=== PATIENT | male | born 1970 | race Caucasian/White ===

== ENCOUNTER 2021-02-27 12:53 | Emergency (ER) | payer SELFPAY ==
--- NOTE | ~2021-02-27 | CT_ITS ---
EXAMINATION: CT abdomen pelvis w con DATE: 02/27/2021 13:36 INDICATION: Abdominal pain, rectal bleeding TECHNIQUE: Computed tomography (CT) of the abdomen and pelvis was performed with 100 cc Omnipaque 350 intravenous contrast. Automated exposure control and iterative reconstruction technique were employe d. Exam dose: 402.42 mGy-cm total exam DLP. COMPARISON: None. FINDINGS: There is mild dependent atelectasis in both lower lobes. Normal heart size. No pericardial or pleural effusion. 1.2 cm lateral segment left hepatic cyst. The liver is otherwise unremarkable. The gallbladder is pre sent. No pericholecystic fluid or fat stranding. No bile duct or pancreatic duct dilatation. No pancr eatic mass lesion or calcification. Normal splenic size. Normal morphology of the adrenal glands. No renal mass lesion or urinary tract calculus or hydroureteronephrosis. Normal caliber of the abdominal aorta. No intraperitoneal or retroperitoneal or pelvic mass lesion or adenopathy or ascites. There is nonspecific moderate thickening of the wall of the rectum and distal sigmoid colon. Normal appendix. Diverticulosis of the sigmoid and distal descending colon; no CT evidence of diverti culitis. No bowel obstruction, pneumatosis or intraperitoneal free air. Mild anterior wedge compression fracture deformity of T12, likely chronic. Diffuse idiopathic skeleta l hyperostosis of the lower thoracic spine. There are prominent degenerative disc disease at L1-2 and to a lesser extent the remaining lumbar int erspaces. Bilateral hip osteoarthritis, particularly severe on the right No suspicious osteolytic or osteoblastic lesions. IMPRESSION: Nonspecific moderate thickening of the wall of the rectum and distal sigmoid colon Diverticulosis of left colon; no CT evidence of diverticulitis Normal appendix 1.2 cm left hepatic cyst Reviewed, dictated and finalized at [facility] Reviewed, dictated and finalized at [facility] IMPRESSION: Nonspecific moderate thickening of the wall of the rectum and dist al sigmoid colon Diverticulosis of left colon; no CT evidence of diverticulitis Normal appendix 1.2 cm left hepatic cyst
[2021-02-27 13:05] VITALS: BP 110/79; PULSE 94; RESP 21; O2SAT 100
--- NOTE | 2021-02-27 13:09 | ECG_ITS ---
Measurements Intervals [place] Rate: 100 P: 77 [place]: 146 QRS: -26 QRSD: 107 T: 71 QT: 361 QTc: 466 Interpretive Statements SINUS TACHYCARDIA VENTRICULAR PREMATURE COMPLEX DELAYED PRECORDIAL R/S TRANSITION BASELINE ARTIFACT- II, III, AVR, AVL, AVF, V1, V3-V6 BORDERLINE ECG Electronically Signed On 02-27-2021 15:09:29 CDT by Nitesh Mullen D.O.
[2021-02-27 13:11] VITALS: BP 106/76; PULSE 91; RESP 20; O2SAT 99
--- NOTE | 2021-02-27 13:20 | ED.GENADULT ---
HPI - General Adult General Chief complaint: Unspecified Stated complaint: hemorraghing Time Seen by Provider: 02/27/21 13:20 Source: patient Mode of arrival: ambulatory Limitations: no limitations History of Present Illness HPI narrative: 50-year-old male states he was complains of putting a dildo in his rectum yesterday when it got stuck. Patient states he was able to remove the object though but there has been a large amount of bloody, dark stools since that time. Last amount stool was at 7 AM. Patient arrived ambulatory dropped off by a friend and vomiting in triage 20 ounces of dark vomit. Patient arrives pale, hypotensive alert and oriented x3. No previous history of same. Related Data Allergies Allergy/AdvReac Type Severity Reaction Status Date / Time No Known Allergies Allergy Verified 02/27/21 13:51 Review of Systems Review of Systems: CONSTITUTIONAL: no fever, no weight loss, no confusion EYES: no vision changes, no eye pain ENT: no rhinorrhea, no sore throat, no difficulty swallowing CARDIOVASCULAR: no chest pain, no leg edema, no palpitations RESPIRATORY: no cough, no shortness of breath, no hemoptysis GASTROINTESTINAL: lower abdominal pain after FB removal, vomiting x 1 and multiple episodes of dark bloody stool per patient. GENITOURINARY: no flank pain, no dysuria, no hematuria SKIN: no rash, no jaundice MUSCULOSKELETAL: no back pain, no trauma. NEUROLOGIC: No headache, lightheadedness no focal weakness PSYCHIATRIC: No hallucinations, no suicidal ideation Exam Narrative: General: alert, afebrile, answering all questions appropriately Head: normocephalic, atraumatic Eyes: EOMI bilaterally, anicteric, no injection ENT: dry mucous membranes, oropharynx patent, no rhinorrhea Neck: supple, trachea midline, no JVD Chest: equal chest rise bilaterally, no chest wall trauma noted Lungs: clear to auscultation bilaterally, respirations unlabored CV: Tachycardic, no HUAN B, calf size equal bilaterally Abd: soft, BLQ non-tender, no rebound, no guarding, negative Davenport's, guaiac positive scant stool : no CVA tenderness B, bladder non-distended Back: no lumbar bony tenderness. paraspinal muscles without spasm EXT: no deformity noted, moving all extremities equally Skin: warm, dry, pale Neuro: alert, oriented x 3; CN 2-12 grossly intact, no dysarthria Psych: affect appropriate, though content normal Course Course Emergency Course: Patient complaining of feet itching still slightly tachycardic after fluids blood pressure improved. Patient improved for admission but now wants to leave AMA. Patient understands that he risks or worsening of condition. He will return immediately if fever, worsening pain or any concern. Consultations Consultation #1: Spoke with GI Dr. Burrows. He does not think the patient needs to be scoped currently but if anything changes medicine can call them. Date: 02/27/21 Time: 16:24 Vital Signs Vital signs: Vital Signs Pulse Rate 94 02/27/21 13:05 Respiratory Rate 21 H 02/27/21 13:05 Blood Pressure 110/79 02/27/21 13:05 Pulse Oximetry 100 02/27/21 13:05 Pulse Rate 102 H 02/27/21 16:16 Respiratory Rate 18 02/27/21 16:16 Blood Pressure 95/52 L 02/27/21 16:16 Pulse Oximetry 97 02/27/21 16:16 Medical Decision Making Differential Diagnosis Differential Diagnosis: Differential diagnosis: Bowel perforation, GI bleed, traumatic GI bleed, dehydration, sepsis, prostatitis, proctitis, diverticulitis, electrolyte disorder, UTI, pyelonephritis Medical Records Medical records reviewed: Yes I reviewed the external patient's medical records. Vital Signs Vital Signs: Vital Signs Pulse Rate 94 02/27/21 13:05 Respiratory Rate 21 H 02/27/21 13:05 Blood Pressure 110/79 02/27/21 13:05 Pulse Oximetry 100 02/27/21 13:05 Pulse Rate 102 H 02/27/21 16:16 Respiratory Rate 18 02/27/21 16:16 Blood Pressure 95/52 L 02/27/21 16:16 Pulse Oximetry 97 02/27/21 16:
[2021-02-27 13:27] LABS: Basophils Absolute Auto 0.1 K/mm3 (0.0-0.1); Basophils Percent Auto 0.6 % (0.2-1.2); Eosinophils Absolute Auto 0.2 K/mm3 (0-0.3); Eosinophils Percent Auto 0.8 % (0-4.4); Hematocrit 32.7 % (42.0-52.0); Hemoglobin 11.3 g/dL (14.0-18.0); Immature Granulocyte Absolute 0.15 K/mm3 (0.00-0.031); Immature Granulocyte Percent A 0.8 % (0-0.5); Lymphocytes Percent Auto 30.5 % (18.3-44.2); Mean Corpuscular HGB Conc 34.6 g/dl (32-36); Mean Corpuscular Hemoglobin 33.3 pg (26-34); Mean Corpuscular Volume 96.5 fl (80-100); Mean Platelet Volume 9.8 fl (7.4-10.4); Monocytes Absolute Auto 1.1 K/mm3 (0.1-0.6); Monocytes Percent Auto 5.4 % (2.6-8.5); Neutrophils Percent Auto 61.9 % (45.5-73.1); Platelet Count Result 325 k/mm3 (150-375); Red Blood Count 3.39 M/mm3 (4.6-6.20); Red Cell Distribution Width 13.6 % (11.5-14.5); White Blood Count 19.4 K/mm3 (4.5-10.0)
[2021-02-27 13:37] LABS: Alanine Aminotransferase 19 U/L (4-50); Albumin Level 3.2 g/dL (3.5-5.1); Alkaline Phosphatase 52 U/L (38-126); Anion Gap 4 mmol/L (8-16); Aspartate Amino Transferase 23 U/L (17-59); Bilirubin,Total 0.3 mg/dL (0.2-1.3); Blood Urea Nitrogen 19 mg/dL (9-20); Calcium 8.4 mg/dL (8.4-10.2); Carbon Dioxide 24 mmol/L (22-30); Chloride 109 mmol/L (98-107); Estimated CRCL calculation 76 ml/min; Estimated Glomerular Filt Rate > 60; Glucose 176 mg/dL (65-110); Lipase 356 U/L (23-300); Potassium 4.4 mmol/L (3.4-5.0); Sodium 137 mmol/L (137-145)
[2021-02-27] MEDS: SODIUM CHLORIDE 0.9% IV 1,000 ML 999 ML IV CONT ×2 (13:39)
[2021-02-27 13:40] LABS: Estimated CRCL calculation 84 ml/min; Estimated Glomerular Filt Rate > 60
[2021-02-27 13:44] LABS: Lactic Acid Reflex 5.5 mmol/L (0.7-2.1)
[2021-02-27] MEDS: PANTOPRAZOLE SODIUM IV 40 MG VIAL 80 MG IV PUSH (13:53)
[2021-02-27] MEDS: LORazepam INJ (*CRX) 2 MG/ML VIAL 1 MG IV PUSH (14:23)
[2021-02-27] MEDS: diphenhydrAMINE HCl INJ 50 MG/ML VIAL 25 MG IV PUSH (14:23)
[2021-02-27] MEDS: LACTATED RINGERS 1,000 ML 250 ML IV CONT (14:35)
[2021-02-27 14:57] LABS: Add Urine Microscopic? NO; Appearance Urine Clear (Clear); Bilirubin Urine Negative (Negative); Blood Urine Negative (Negative); Color Urine Yellow (Yellow); Glucose Urine UA Negative (Negative); Ketones Urine Negative (Negative); Leukocyte Esterase Ur Negative LEU/UL (Negative); Nitrate Urine Negative (Negative); Protein Urine Negative (Negative); Urobilinogen Urine Negative mg/dL (<2.0)
[2021-02-27 14:59] LABS: Specific Grav Ur > 1.060 (1.001-1.035)
[2021-02-27 15:14] LABS: Amphetamine Screen Urine Negative (Negative); Barbiturate Screen Urine Negative (Negative); Benzodiazepines Screen Urine Negative (Negative); Cannabinoid Screen Urine Positive (Negative); Cocaine Screen Urine Negative (Negative); Methadone Screen Urine Negative (Negative); Opiate Screen Urine Negative (Negative); Phencyclidine Screen Urine Negative (Negative)
--- NOTE | 2021-02-27 15:15 | PC.NURSE ---
Pt rolling around in bed stating he is cold. Pt has on approx 6 blankets but keeps removing them. Pt also keeps pulling off his monitor leads.
[2021-02-27 15:22] LABS: Troponin I < 0.012 ng/mL (0.000-0.034)
[2021-02-27 16:16] VITALS: BP 95/52; PULSE 102; RESP 18; O2SAT 97
--- NOTE | 2021-02-27 16:22 | PC.NURSE ---
Pt continues to roll around in bed and remove linens, monitor cords. Pt states he has restless legs and possible parkinsons. States he hasnt taken his medications in 6 months when he last saw a doctor
[2021-02-27 16:24] LABS: Reflex Lactic Acid Yes or No Add Lactic
[2021-02-27 16:29] LABS: Creatine Kinase 197 U/L (55-170)
--- NOTE | 2021-02-27 17:09 | PC.NURSE ---
Pt called himself a cab and is wanting to refuse admission and leave AMA. EDP notified. Pt signed AMA paperwork.
== END 2021-02-27 17:24 | disposition short-term general hospital (02) ==
PROVIDERS: Emergency Medicine; Emergency Provider Emergency Medicine
DX: E87.2 Acidosis (principal)
CPT/HCPCS: 36415; 74177; 80053; 80307; 81003; 82550; 83605; 83690; 84484; 85025; 86850; 86900; 86901; 87040; 93005; 96361; 96365; 96375; 99285; C9113; J1200; J2060; J2543; J7030; J7120; Q9967